=== PATIENT | male | born 1985 | race Caucasian/White ===

== ENCOUNTER 2018-10-02 13:17 | Emergency (ER) | payer BC ==
--- NOTE | 2018-10-02 14:46 | EDM.PDOC ---
ED HPI GENERAL MEDICAL PROBLEM - General Chief Complaint: Neurological Problem Stated Complaint: HEADACHE WHEN BENDING OVER Time Seen by Provider: 10/02/18 14:34 Source of Information: Reports: Patient History Limitations: Reports: No Limitations - History of Present Illness INITIAL COMMENTS - FREE TEXT/NARRATIVE: 31-year-old male presents for evaluation and treatment of headaches. Patient reports yesterday he was at work he was lifting some heavy equipment. Reports that he was bent over and he developed a severe onset of this sudden headache. Reports it was located in the posterior skull. He states that he stood up and his symptoms seemed to improve. He reports today he was doing the same thing when he bent over to lift a heavy equipment he again experienced sudden onset of a severe headache. At this time in the ER he states that he has some dull discomfort to the posterior head a describes as a dull ache. He denies any numbness or tingling in extremities, vision changes, nausea, vomiting, lightheadedness, dizziness or vision changes, chest pain or shortness of breath. patient states he has never had anything like this before. He states that the headache when he was bent over was the worst headache of his life and he felt foggy afterwards. Patient was working outside he has been drinking plenty of water. Occipital Headache Pain Score (Numeric/FACES): 2 - Related Data Allergies Allergy/AdvReac Type Severity Reaction Status Date / Time No Known Allergies Allergy Verified 10/02/18 13:27 Home Meds: Home Meds . [No Known Home Meds] 10/02/18 [History] Past Medical History - Past Health History Medical/Surgical History: Denies Medical/Surgical History Social & Family History - Tobacco Use Smoking Status *Q: Current Every Day Smoker Years of Tobacco use: 15 Packs/Tins Daily: 1 - Caffeine Use Caffeine Use: Reports: Coffee - Recreational Drug Use Recreational Drug Use: No ED ROS GENERAL - Review of Systems Review Of Systems: See Below HEENT: Denies: Vision Change Respiratory: Denies: Shortness of Breath Cardiovascular: Denies: Chest Pain GI/Abdominal: Denies: Nausea, Vomiting Neurological: Reports: Headache (with heavy lifting, posterior scalp, minimal discomfort now). Denies: Numbness, Syncope, Tingling - Physical Exam Exam: See Below Exam Limited By: No Limitations General Appearance: Alert, WD/WN, No Apparent Distress, Obese Eye Exam: Bilateral Eye: EOMI, Normal Inspection, PERRL Ears: Normal External Exam, Normal Canal, Hearing Grossly Normal, Normal TMs Nose: Normal Inspection Throat/Mouth: Normal Inspection, Normal Lips, Normal Voice, No Airway Compromise Head Exam: Atraumatic, Normocephalic Neck: Normal Inspection, Supple, Non-Tender, Full Range of Motion Respiratory/Chest: No Respiratory Distress, Lungs Clear, Normal Breath Sounds Cardiovascular: Normal Peripheral Pulses, Regular Rate, Rhythm, No Murmur GI/Abdominal: Normal Bowel Sounds, Soft, Non-Tender Neuro Exam (Abbreviated): Alert, Oriented, CN II-XII Intact, Normal Cognition, Normal Gait Extremities: Normal Inspection Psychiatric: Normal Affect, Normal Mood Skin Exam: Warm, Dry, Normal Color Course - Vital Signs Last Recorded V/S: Last Vital Signs Temp 97.8 F 10/02/18 13:29 Pulse 78 10/02/18 17:50 Resp 14 10/02/18 17:50 BP 148/77 H 10/02/18 17:50 Pulse Ox 96 10/02/18 17:50 - Orders/Labs/Meds Labs: Laboratory Tests 10/02/18 10/02/18 10/02/18 Range/Units 15:01 15:01 15:01 WBC 12.38 H (4.23-9.07) K/mm3 RBC 4.89 (4.63-6.08) M/mm3 Hgb 15.6 (13.7-17.5) gm/L Hct 44.6 (40.1-51.0) % MCV 91.2 (79.0-92.2) fl MCH 31.9 (25.7-32.2) pg MCHC 35.0 (32.2-35.5) g/dl RDW Std Deviation 42.6 (35.1-43.9) fL Plt Count 342 H (163-337) K/mm3 MPV 9.8 (9.4-12.3) fl Neut % (Auto) 56.5 (34.0-67.9) % Lymph % (Auto) 27.5 (21.8-53.1) % [place] % (Auto) 11.4 (5.3-12.2) % Eos % (Auto) 3.9 (0.8-7.0) Baso % (Auto) 0.3 (0.1-1.2) % Neut # (Auto) 7.00 H (1.78-5.38) K/mm3 Lymph # (Auto) 3.40 (1.32-3.57) K/mm3 [place] # (Auto) 1.41 H (0.30-0.82) K/mm3 Eos # (Auto) 0.48 (0.04-0.54) K/mm3 Baso # (Auto) 0.04 (0.01-0.08) K/mm3 PT 11.3 (9.5-12.1) SECONDS INR 1.04 APTT 31 (24-31) SECONDS Sodium 137 (136-145) mEq/L Potassium 3.9 (3.5-5.1) mEq/L Chloride 104 (98-107) mEq/L Carbon Dioxide 23 (21-32) mEq/L Anion Gap 13.9 (5-15) BUN 18 (7-18) mg/dL Creatinine 1.0 (0.7-1.3) mg/dL Est Cr Clr Drug Dosing 112.95 mL/min Estimated GFR (MDRD) > 60 (>60) mL/min BUN/Creatinine Ratio 18.0 (14-18) Glucose 90 (74-106) mg/dL Calcium 9.1 (8.5-10.1) mg/dL Total Bilirubin 0.5 (0.2-1.0) mg/dL AST 26 (15-37) U/L ALT 52 (16-63) U/L Alkaline Phosphatase 68 (46-116) U/L Total Protein 7.2 (6.4-8.2) g/dl Albumin 3.9 (3.4-5.0) g/dl Globulin 3.3 gm/dL Albumin/Globulin Ratio 1.2 (1-2) TSH 3rd Generation 1.474 (0.358-3.74) uIU/mL - Radiology Interpretation Free Text/Narrative:: Head CT Technique: Multiple axial sections through the brain were obtained. Intravenous contrast was not utilized. Comparison: No previous study. Findings: Ventricles along with basal cisterns and sulci over the convexities are within normal limits for the patient's age. Increased density is noted within the proximal middle cerebral arteries bilaterally. No abnormal parenchymal densities are seen. No evidence of intracranial hemorrhage. No midline shift or mass effect is seen. Mild areas of mucosal thickening are seen within the ethmoid sinuses. No acute calvarial abnormality is appreciated. Impression: 1. Hyperdense middle cerebral arteries. Given the symmetry of these findings, finding is most likely incidental. Please correlate that patient has no vascular symptoms to indicate further imaging by MR angiogram. 2. Sinus findings which are felt to be incidental. 3. Other portions of the noncontrast head CT study appear unremarkable. - Re-Assessments/Exams Free Text/Narrative Re-Assessment/Exam: 10/02/18 17:36 CT results discussed with Dr. Anders. He recommended discussing with neurology. I discussed the case with Dr. Paniagua, neurologist at [facility] in [place]. Did not feel that dense middle cerebral arteries were causing his symptoms. [place] these are likely incidental. Recommended a CTA if we wanted o but did not feel was necessary. I discussed this with the patient. Will schedule some outpatient basis as he feels comfortable going home at this time. Discharge instructions as documented. Departure - Departure Time of Disposition: 17:37 Disposition: Home, Self-Care 01 Condition: Fair Clinical Impression: Headache - Discharge Information *PRESCRIPTION DRUG MONITORING PROGRAM REVIEWED*: No *COPY OF PRESCRIPTION DRUG MONITORING REPORT IN PATIENT SAMY: No Instructions: Migraine Headache Referrals: PCP,None [Primary Care Provider] - Ariane Gaitan PA-C [Physician [employer]] - Forms: ED Department Discharge Additional Instructions: An outpatient order has been placed for you to have a CTA of your head and neck. Radiology should call you to schedule this, if you fo not head from them, call [phone] to schedule with radiology. Follow-up with family [facility] after the CTA for results and are check of your symptoms. Recommend Janett Gaitan or Chery Nathan, call [phone] to schedule with one of these providers. In the meantime, avoid heavy lifting. Please return to the ER should your symptoms change or worsen.
--- NOTE | 2018-10-02 15:31 | CT ---
Head CT Technique: Multiple axial sections through the brain were obtained. Intravenous contrast was not utilized. Comparison: No previous study. Findings: Ventricles along with basal cisterns and sulci over the convexities are within normal limits for the patient's age. Increased density is noted within the proximal middle cerebral arteries bilaterally. No abnormal parenchymal densities are seen. No evidence of intracranial hemorrhage. No midline shift or mass effect is seen. Mild areas of mucosal thickening are seen within the ethmoid sinuses. No acute calvarial abnormality is appreciated. Impression: 1. Hyperdense middle cerebral arteries. Given the symmetry of these findings, finding is most likely incidental. Please correlate that patient has no vascular symptoms to indicate further imaging by MR angiogram. 2. Sinus findings which are felt to be incidental. 3. Other portions of the noncontrast head CT study appear unremarkable. Diagnostic code #3
== END 2018-10-02 17:48 | disposition home or self-care (01) ==
LOC: JD.ED 13:17
DX: R51 Headache (principal); F17.210 Nicotine dependence, cigarettes, uncomplicated
CPT/HCPCS: 36415; 70450; 70450-26; 80053; 84443; 85025; 85610; 85730; 99284-25